=== PATIENT | female | born 1985 | race Two or more races ===

== ENCOUNTER 2023-07-01 16:41 | Emergency (ER) | payer OTHER ==
[2023-07-01 16:46] VITALS: BP 129/84; PULSE 86; RESP 18; TEMP 98.4; BMI 26.7
[2023-07-01] MEDS ORDERED: SODIUM CHLORIDE 0.9% 500 ML INFUS.BAG IV ONE (18:18)
[2023-07-01 18:39] LABS: BASO % 0.6 % (0-2.0); HEMATOCRIT 40.5 % (32.4-45.2); LYMPH % 21.8 % (8-40); MCH 27.4 pg (25.7-33.7); MCHC 32.2 g/dl (32.0-36.0); MEAN CELL VOLUME 85.2 fl (80-96); MEAN PLT VOLUME 7.6 fl (7.5-11.1); MONO % 6.3 % (3.8-10.2); NEUT % 70.3 % (42.8-82.8); PLATELET COUNT 353 10^3/uL (134-434); RBC 4.75 M/mm3 (3.60-5.2); RDW 14.5 % (11.6-15.6); WHITE BLOOD COUNT 10.3 K/mm3 (4.0-10.0)
[2023-07-01 18:49] LABS: POTASSIUM 4.2 mmol/L (3.5-5.1)
[2023-07-01] MEDS ORDERED: SODIUM CHLORIDE 1,000 ML IV STA (18:50)
[2023-07-01 18:51] LABS: CALCIUM 9.1 mg/dL (8.5-10.1)
[2023-07-01 18:52] LABS: ALBUMIN 3.5 g/dl (3.4-5.0); BLOOD UREA NITROGEN 12.4 mg/dL (7-18)
[2023-07-01 18:55] LABS: CREATININE 0.6 mg/dL (0.55-1.3)
[2023-07-01 18:56] LABS: TOT PROT 7.9 g/dl (6.4-8.2)
[2023-07-01 18:57] LABS: BILIRUBIN,TOTAL 0.2 mg/dL (0.2-1)
[2023-07-01 19:37] LABS: EPI CELLS 9 /uL (0-25.1); HYALINE CASTS 0 /uL (0-3.1); PH,URINE 6.5 (5.0-8.0); URINE APPEARANCE CLEAR; URINE BACTERIA 200 /uL (0-1359); URINE BILIRUBIN NEGATIVE (NEGATIVE); URINE COLOR YELLOW; URINE GLUCOSE (UA) NEGATIVE (NEGATIVE); URINE KETONE NEGATIVE (NEGATIVE); URINE LEUK ESTERASE NEGATIVE (NEGATIVE); URINE NITRITE NEGATIVE (NEGATIVE); URINE PROTEIN NEGATIVE (NEGATIVE); URINE UROBILINOGEN 0.2 mg/dL (0.2-1.0); URINE WBC 24 /uL (0-25.8)
[2023-07-01 19:57] LABS: HCG,QUALITATIVE URINE Negative
[2023-07-01 20:07] LABS: URINE RBC 74.8 /uL (0-23.9); YEAST NONE SEEN (NEGATIVE)
[2023-07-01] MEDS ORDERED: MAGNESIUM 1GM/D5W - 1 GM/100 ML IVPB IVPB ONE ×2 (20:16→20:21)
[2023-07-01] MEDS ORDERED: MAGNESIUM SULF 50% (8.12 MEQ/2 ML-1 GM VIAL) ONE (20:20)
[2023-07-01 20:47] LABS: MAGNESIUM 2.2 mg/dL (1.8-2.4)
== END 2023-07-01 21:22 | disposition home or self-care (01) ==
LOC: JER 16:41
PROC: 3E033GC Introduction of Other Therapeutic Substance into Peripheral Vein, Percutaneous Approach (ICD-10-PCS; principal; 2023-07-01)
DX: R53.1 Weakness (principal); R42 Dizziness and giddiness; R53.83 Other fatigue; R68.84 Jaw pain; Z20.822 Contact with and (suspected) exposure to COVID-19
CPT/HCPCS: 0241U-QW; 36415; 80053; 81003; 83735; 84484; 84703; 85025; 93005; 93010; 99284-25